=== PATIENT | female | born 1940 | race Hispanic/Latino ===

== ENCOUNTER 2023-10-08 19:47 | Emergency (ER) | payer MEDICARE ==
[~2023-10-08] VITALS: Ht 152.4 cm; Wt 70.8 kg
[2023-10-08 19:58] VITALS: O2SAT 99
== END 2023-10-08 22:30 | disposition home or self-care (01) ==
LOC: ER 19:52
DX: R23.3 Spontaneous ecchymoses (principal); I10 Essential (primary) hypertension; E78.5 Hyperlipidemia, unspecified; I25.10 Atherosclerotic heart disease of native coronary artery without angina pectoris; Z95.5 Presence of coronary angioplasty implant and graft
CPT/HCPCS: 99282